=== PATIENT | male | born 1985 | race Caucasian/White ===

== ENCOUNTER 2023-11-12 08:47 | Emergency (ER) | payer BC, MEDICAID, OTHER ==
[~2023-11-12] VITALS: Ht 190.5 cm; Wt 174.3 kg
[2023-11-12 08:51] VITALS: BP 183/118; PULSE 103; RESP 16; TEMP 97.3; O2SAT 96
[2023-11-12] MEDS: LIDOcaine 2% Viscous 15ml cup MM PRN (09:42)
[2023-11-12] MEDS ORDERED: LIDO20SO16 PO (09:43)
== END 2023-11-12 10:25 | disposition home or self-care (01) ==
LOC: ER 08:48
DX: J03.90 Acute tonsillitis, unspecified (principal)
CPT/HCPCS: 87081; 99283